=== PATIENT | male | born 1965 | race Caucasian/White ===

== ENCOUNTER 2018-10-17 07:37 | Day surgery (SDC) | payer BC ==
[~2018-10-17 07:37] MED LIST: ACETAMINOPHEN 1,000 MG/100 ML BTL IV ONE; CLINDAMYCIN 600MG/50ML PREMIX 600 MG/50 ML BAG IVPB ONE
[2018-10-17] MEDS ORDERED: SUCCINYLCHOLINE 20 MG/ML 10ML IVP ONE (07:38)
[2018-10-17] MEDS ORDERED: BUPIVACAINE LIPOSOME 266MG/20ML VIAL IV ONE (07:38)
[2018-10-17] MEDS ORDERED: HYDROCODONE/APAP 7.5/325MG TABLET PO ONE (07:38)
[2018-10-17] MEDS ORDERED: SEVOFLURANE 250 ML INH ONE (07:38)
[2018-10-17] MEDS ORDERED: EPHEDRINE SULFATE 50 MG/ML ML IV ONE (07:38)
[2018-10-17] MEDS ORDERED: BUPIVACAINE 0.5% W/EPI MPF 30 ML VIAL IVP ONE (07:38)
[2018-10-17] MEDS ORDERED: FENTANYL PF 100MCG/2ML VIAL IV ONE (07:38)
[2018-10-17] MEDS ORDERED: PROPOFOL 10 MG/ML VIAL IV ONE (07:38)
[2018-10-17] MEDS ORDERED: EPINEPHRINE 1 MG/ML AMPUL SQ ONE (07:38)
[2018-10-17] MEDS ORDERED: MIDAZOLAM HCL 2MG/2ML VIAL IV ONE (07:38)
[2018-10-17] MEDS ORDERED: DEXAMETHASONE 4 MG/ML 1ML VIAL IVP ONE (07:38)
[2018-10-17] MEDS ORDERED: KETOROLAC 30 MG/ML VIAL IVP ONE (07:38)
[2018-10-17] MEDS ORDERED: ONDANSETRON HCL IV 4 MG/2 ML VIAL IVP ONE (07:38)
[2018-10-17] MEDS ORDERED: RINGERS SOLUTION,LACTATED 700 ML IV ONE (12:10)
[2018-10-17] MEDS ORDERED: HYDROCODONE/APAP 7.5/325MG TABLET PO PRN (12:41)
--- NOTE | 2018-10-21 10:05 | Operative Note ---
DATE OF SURGERY: 10/17/2018. PREOPERATIVE DIAGNOSES: 1. RIGHT SHOULDER ROTATOR CUFF TEAR. 2. ACROMIOCLAVICULAR JOINT ARTHROSIS. POSTOPERATIVE DIAGNOSES: 1. RIGHT SHOULDER ROTATOR CUFF TEAR. 2. ACROMIOCLAVICULAR JOINT ARTHROSIS. OPERATION: 1. Diagnostic arthroscopy. 2. Arthroscopic acromioplasty with subacromial decompression. 3. Arthroscopic excision of the distal clavicle and acromioclavicular joint to 1.0 cm. 4. Arthroscopic rotator cuff repair. SURGEON: Feliciano Nelson M.D. ANESTHESIA: General endotracheal. COMPLICATIONS: None. ESTIMATED BLOOD LOSS: Minimal. OPERATIVE FINDINGS: A medium full-thickness tear of the supraspinatus tendon. COMPONENTS PLACED: Two [employer] 5.5 mm Regenesorb anchors along with two #2 Ultrabraid sutures and one [employer] multi-fix anchor loaded with the four sutures from the medial row anchor. INDICATIONS: This is an 52-year-old male who has had persistent pain and dysfunction in his shoulder for several years. He has failed nonoperative treatment. He has done a lot of wood cutting lately and had an ultrasound preoperatively which showed a rotator cuff tear. He was scheduled for the procedures above. I explained to him all risks and benefits of surgery in detail for the diagnosis and procedures including but not limited to infection, nerve injury, vessel injury, persistent pain, stiffness, numbness and tingling in his shoulder, retear of the rotator cuff, and the need for further procedures. All of his questions were answered. The treatment and course were outlined and he agreed to proceed. PROCEDURE: The patient brought to the operating room, placed in the beach chair position, and prepared for surgery. Endotracheal anesthesia was induced. His right upper extremity and shoulder were prepped and draped in sterile fashion. The right shoulder was prepped again with ChloraPrep and draped. Intraoperative time out was performed. Next, diagnostic arthroscopy was performed. The biceps tendon was normal. The biceps anchor had some slight fraying. The superior labrum had a Type I SLAP lesion. We debrided that immediately with a shaver. The posterosuperior labrum was normal. Axial recess was normal. Posteroinferior labrum was normal. The glenohumeral head and articular cartilage were normal. The undersurface of the rotator cuff was thoroughly inspected. There was a full -thickness tear in the supraspinatus tendon; about medium in size, about 2.0 to 3.0 cm. The barrier was normal. The anteroinferior labrum and glenohumeral head were normal. The subscapular tendon was normal. Next a shaver was inserted in the anterior portal and I debrided back the greater tuberosity to the articular margin to bleeding bone surface. Next, the anterior and posterior subacromial portals were established. The tissue blade was inserted in the anterior subacromial portal, and subacromial bursectomy was performed. I outlined the anterolateral acromion and resected coracoacromial ligament completely. Opened up the inferior acromioclavicular joint capsule. Next, inserted the bur in the lateral portal and took off strips of bone working from lateral to medial and anterior to posterior, converting the type II acromion to a planar surface. We used a rasp to smooth the subacromial surface and verified it was flat with the probe from the posterior portal. Next, the bur was inserted in the anterior portal and I burred down to the medial acromial facet. Resected the distal clavicle 1.0 cm and made a small stab incision superior to the acromioclavicular joint. I inserted the shaver there and smoothed both bony surfaces. Verified the acromioclavicular joint was completely free of any bony impingement and bony fragments. Next, we thoroughly inspected the bursa and we saw a medium-sized tear. We placed an accessory anterolateral portal. Used a spinal needle and inserted a disposable cannula there. I then placed two anchors, one medial and one lateral , in the same fashion. Using a spinal needle at localized endpoints I made a small stab incision off the acromion edge. I inserted the punch tap and then inserted the anchor, and buried it beneath the surface of the bone. Next, passed one limb of each set of suture into the joint with a curved tissue penetrator. Worked from anterior to posterior covering the entire tear site with two mattress sutures about 2.0 cm medial to the cuff tear edge. Next, we placed a lateral anchor off the greater tuberosity edge in the same fashion. This time we passed only one limb of the lateral sutures and set it posterior to the previously placed mattress suture. Created a Ezequiel-Dl type construct. We then tied each one down in succession; the medial row anchor suture with a lateral suture, creating our Ezequiel-Dl sutures. This tucked down the cuff nicely. We kept the medial row sutures, loaded them on a multi-fix anchor, and placed that over the greater tuberosity edge. Loaded the sutures on the anchor , tapped the anchor in, and secured it in place. This tucked the cuff down further reproducing its footprint. It was probed and gail were secured. Visualized intra-articularly, again the footprint was nicely re-established here. This completed our procedures. The scope and equipment was removed. The scope incisions were covered with Xeroform gauze. A sterile dressing, UltraSling, and ice cooler wrap. The patient tolerated the procedures well. No intraoperative complications. Sponge, needle, and blade counts correct. Recovery room stable, neurovascularly intact. He will be discharged as an outpatient and will follow up in two weeks. JOB NUMBER: [id number] cc: Stanley Bruno
== END 2018-10-17 13:25 | disposition home or self-care (01) ==
LOC: SUR 07:37
PROVIDERS: ATTEND Orthopaedic Surgery
DX: M75.101 Unspecified rotator cuff tear or rupture of right shoulder, not specified as traumatic (principal); S43.431A Superior glenoid labrum lesion of right shoulder, initial encounter; M19.011 Primary osteoarthritis, right shoulder; K21.9 Gastro-esophageal reflux disease without esophagitis
CPT/HCPCS: 29827; 29824; 01630; 93005; J1885; J2405; J3010; C9290; C1713; J0171; J0330; J7120